=== PATIENT | female | born 1985 | race Hispanic/Latino ===

== ENCOUNTER 2022-02-16 10:09 | Inpatient (IN) | payer MEDICAID, OTHER ==
[2022-02-15 11:38] LABS: Hemoglobin 10.9 g/dL (12.0-15.5); Mean Corpuscular HGB CONC 33.3 g/dL (32.0-36.0); Mean Corpuscular Hemoglobin 27.9 pg (27.0-33.0); Mean Corpuscular Volume 83.6 fl (81.6-98.3); Mean Platelet Volume 12.7 fl (7.4-10.4); Platelet Count 139 10x3/uL (150-450); Red Blood Cell (RBC) Count 3.91 10x6/uL (3.90-5.03); White Blood Cell (WBC) Count 6.1 10x3/uL (3.5-10.5)
[2022-02-15 12:10] LABS: Hep B Surf Ag Non-Reactive S/CO (NonReactive)
[2022-02-15 12:11] LABS: Syphilis Antibody Nonreactive (Nonreactive); Syphilis Antibody Index 0.04 S/CO (<1.00 Non-Reactive)
[2022-02-15 12:18] LABS: HBSAg Index 0.17 S/CO (0-0.99)
[2022-02-15 12:20] LABS: SARS-CoV-2 NAA Rapid Test Not Detected (NotDetected)
[2022-02-16 11:17] VITALS: BMI 28.6
[2022-02-16] MEDS ORDERED: Ondansetron PF 4 MG/2 ML Vial IVP PRN ×3 (11:18→15:31)
[2022-02-16] MEDS ORDERED: Bicitra 30 ML UDCUP PO PRN (11:18)
[2022-02-16] MEDS ORDERED: Lactated Ringer's 1,000 ML IV SCH (11:18)
[2022-02-16] MEDS ORDERED: ceFAZolin 2 GM/Dextrose 50 ML 2 GM in Premix Bag 1 BAG IVPB SCH (11:18)
[2022-02-16] MEDS ORDERED: hydrALAZINE 20 MG/ML VIAL SLOW IVP PRN ×2 (11:18→15:31)
[2022-02-16] MEDS ORDERED: Famotidine/PF 20 mg/2ml Vial SLOW IVP PRN (11:18)
[2022-02-16] MEDS ORDERED: Promethazine HCl 25 MG/ML VIAL IM PRN ×2 (11:18→11:52)
[2022-02-16] MEDS ORDERED: Fentanyl 100 MCG/2 ML VIAL SLOW IVP PRN (11:52)
[2022-02-16] MEDS ORDERED: Ketorolac Tromethamine 30 MG/ML VIAL IVP PRN (11:52)
[2022-02-16] MEDS ORDERED: Naloxone HCl 0.4 mg/ml Vial IV PRN (11:52)
[2022-02-16] MEDS ORDERED: Moisturizing Cream (Eucerin) 113 GM JAR TOP PRN (11:52)
[2022-02-16] MEDS ORDERED: diphenhydrAMINE 50 MG/ML VIAL IVP PRN (11:52)
[2022-02-16] MEDS ORDERED: Promethazine HCl 25 MG SUPP PR PRN (11:52)
[2022-02-16] MEDS ORDERED: Meperidine HCl/PF 25 MG/ML VIAL SLOW IVP PRN (11:52)
[2022-02-16] MEDS ORDERED: Ondansetron HCl/PF 4 MG/2 ML Vial IVP PRN (11:52)
[2022-02-16] MEDS ORDERED: Naloxone HCl 0.4 mg/ml Vial IVP PRN ×2 (11:52)
[2022-02-16] MEDS ORDERED: Ketorolac Tromethamine 30 MG/ML VIAL ONE (11:58)
[2022-02-16] MEDS ORDERED: Dexamethasone 4 mg/ml Vial ONE ×2 (11:58→13:08)
[2022-02-16] MEDS ORDERED: Morphine PF 10 MG/10 ML VIAL ONE (11:58)
[2022-02-16] MEDS ORDERED: Phenylephrine 40 MG/NS 250 ML 250 ML ONE (11:58)
[2022-02-16] MEDS ORDERED: Ondansetron PF 4 MG/2 ML Vial ONE (11:58)
[2022-02-16] MEDS ORDERED: Oxytocin 10 UNITS/ML VIAL ONE ×2 (11:58→13:22)
[2022-02-16] MEDS ORDERED: Ketorolac Tromethamine 30 MG/ML VIAL IVP SCH (12:00)
[2022-02-16] MEDS ORDERED: Communication Order-Pharmacy FS SCH (12:00)
[2022-02-16] MEDS ORDERED: ePHEDrine Sulfate 50 MG/10 ML VIAL ONE (12:28)
[2022-02-16] MEDS ORDERED: Bisacodyl 10 MG SUPP PR PRN (15:31)
[2022-02-16] MEDS ORDERED: NS w/ Oxytocin 30 units 500 ML IV SCH (15:31)
[2022-02-16] MEDS ORDERED: Acetaminophen 325 MG TAB PO PRN (15:31)
[2022-02-16] MEDS ORDERED: Lanolin Ointment 7 GM TUBE TOP PRN (15:31)
[2022-02-16] MEDS ORDERED: Simethicone Chewable 80 MG TAB PO PRN (15:31)
[2022-02-16] MEDS ORDERED: diphenhydrAMINE 25 MG CAP PO PRN (15:31)
[2022-02-16] MEDS ORDERED: Boostrix 0.5 ML (Tdap) VIAL IM ONE (15:31)
[2022-02-16] MEDS ORDERED: Fentanyl 100 MCG/2 ML VIAL SLOW IVP SCH (16:45)
[2022-02-16] MEDS: Docusate 100 MG CAP PO SCH (21:06)
[2022-02-16] MEDS: Ferrous Sulfate 325 MG TAB PO SCH (21:06)
[2022-02-16] MEDS: Ketorolac Tromethamine 30 MG/ML VIAL IVP SCH (23:29)
[2022-02-17 04:34] LABS: Hemoglobin 9.2 g/dL (12.0-15.5); Mean Corpuscular HGB CONC 32.3 g/dL (32.0-36.0); Mean Corpuscular Hemoglobin 27.5 pg (27.0-33.0); Mean Corpuscular Volume 85.3 fl (81.6-98.3); Mean Platelet Volume 12.9 fl (7.4-10.4); Platelet Count 124 10x3/uL (150-450); RBC Distribution Width 16.2 % (11.5-14.5); Red Blood Cell (RBC) Count 3.34 10x6/uL (3.90-5.03); White Blood Cell (WBC) Count 12.3 10x3/uL (3.5-10.5)
[2022-02-17] MEDS: Ketorolac Tromethamine 30 MG/ML VIAL IVP SCH ×3 (05:20→11:41)
[2022-02-17] MEDS: Lactated Ringer's 1,000 ML IV SCH ×4 (08:05→13:52)
[2022-02-17] MEDS: Prenatal Vitamin 1 TAB PO SCH (08:33)
[2022-02-17] MEDS: Docusate 100 MG CAP PO SCH ×2 (08:33→21:41)
[2022-02-17] MEDS: Ferrous Sulfate 325 MG TAB PO SCH ×2 (08:33→21:41)
[2022-02-17] MEDS: Ibuprofen 800 MG TAB PO SCH ×2 (14:16→21:41)
[2022-02-17] MEDS: HYDROcodone/Acetaminophen 5/325 mg Tablet PO PRN (18:13)
[2022-02-18] MEDS: HYDROcodone/Acetaminophen 5/325 mg Tablet PO PRN ×4 (00:53→20:56)
[2022-02-18] MEDS: Ibuprofen 800 MG TAB PO SCH ×3 (05:35→22:10)
[2022-02-18] MEDS: Ferrous Sulfate 325 MG TAB PO SCH ×2 (08:37→20:56)
[2022-02-18] MEDS: Docusate 100 MG CAP PO SCH ×2 (08:37→20:56)
[2022-02-18] MEDS: Prenatal Vitamin 1 TAB PO SCH (08:37)
[2022-02-19] MEDS: HYDROcodone/Acetaminophen 5/325 mg Tablet PO PRN ×2 (05:08→13:15)
[2022-02-19] MEDS: Ibuprofen 800 MG TAB PO SCH (05:09)
[2022-02-19 08:05] VITALS: BP 106/61; TEMP 97.8
[2022-02-19] MEDS: Ferrous Sulfate 325 MG TAB PO SCH (08:48)
[2022-02-19] MEDS: Prenatal Vitamin 1 TAB PO SCH (08:48)
[2022-02-19] MEDS: Docusate 100 MG CAP PO SCH (08:48)
== END 2022-02-19 14:00 | disposition home or self-care (01) | DRG 788 ==
LOC: CSHLD 10:09 → CSHPP 15:45
PROVIDERS: ADMIT Family Medicine; ATTEND Family Medicine
PROC: 10D00Z1 Extraction of Products of Conception, Low, Open Approach (ICD-10-PCS; principal; 2022-02-16)
PROC: 3E0334Z Introduction of Serum, Toxoid and Vaccine into Peripheral Vein, Percutaneous Approach (ICD-10-PCS; 2022-02-17)
DX: O34.211 Maternal care for low transverse scar from previous cesarean delivery (principal); Z20.822 Contact with and (suspected) exposure to COVID-19; O34.13 Maternal care for benign tumor of corpus uteri, third trimester; D25.9 Leiomyoma of uterus, unspecified; Z3A.39 39 weeks gestation of pregnancy; Z37.0 Single live birth; O26.893 Other specified pregnancy related conditions, third trimester; Z67.11 Type A blood, Rh negative
CPT/HCPCS: 36415; 51702; 85027; 85461; 86780; 86850; 86900; 86901; 87340; 90384; 96372; J0690; J1100; J1885; J2274; J2405; J2590; J3010; J7120; S0028; U0002